=== PATIENT | female | born 1955 ===

== ENCOUNTER 2023-11-21 13:58 | Outpatient (AMB) | payer MEDICARE, OTHER, SELFPAY ==
[2023-11-21 14:32] VITALS: PULSE 78; TEMP 36.9; O2SAT 100; BMI 30.2
--- NOTE | 2023-11-21 14:32 | A.OFFVIS_ITS ---
Vital Signs 11/21/23 14:32 Height 5 ft 1 in Weight 160 lb BMI 30.2 Pulse 78 Pulse Source Pulse Oximeter Temp 98.4 F Temp Source Oral Pulse Oximetry (%) 100 Intake Visit Reasons: [email or web address] recurrent UTI Allergies ciprofloxacin [From Cipro] Allergy (Unknown, Verified 11/21/23 14:36) Unknown HPI HPI [email or web address] recurrent UTI: Details: She has had recurrent UTIs. She sees [facility]. SHe had unremarkable cystoscopy per her report. She reports allergy to Cipro with hives and puffiness. She reports being hospitalized twice in March and in October. [facility] Medical History (Updated 12/12/23 @ 15:50 by Amber Packer MD) Recurrent UTI Review of Systems Const All systems reviewed & are unremarkable except as noted in HPI and below Physical Exam Vital Signs: Last Vital Signs Temp 98.4 F 11/21/23 14:32 Pulse 78 11/21/23 14:32 Pulse Ox 100 11/21/23 14:32 BMI result Body Mass Index 30.2 Const General: cooperative Orientation/consciousness: patient oriented x3 HEENT Head: Yes normal to inspection Mouth: Normal oral and palatal mucosa present Eyes General: appearance normal, both eyes and all related structures Pupils: Equal, round and reactive pupils present Resp Effort & Inspection: normal respiratory effort Cardio Rate: regular rate Rhythm: regular rhythm GI Palpation (GI): Soft to palpation and nontender General: Yes no CVA tenderness Back/Spine/Pelvis Back: no CVA tenderness Skin General skin exam: no rashes or lesions noted Neuro General: patient oriented x3 Cranial nerves: Yes CN's II-XII intact bilaterally and Yes Equal, round and reactive pupils present Extrem General: Yes normal to inspection Psych Appearance: grossly normal Assessment & Plan Assessment & Plan (1) Recurrent UTI: Comment: Acidification of urine may help prevent bacterial growth. There is no antibiotic that would help prevent as resistance would grow. Code(s): N39.0 - Urinary tract infection, site not specified Category: Medical Plan: Methenamine 1 g po bid,60 and one refill. See as needed prn need. Medications: New methenamine hippurate 1 g PO BID 60 tabs 5RF 30 days Coding Level of Care Code New Pt Level 3 (58215) Diagnoses Recurrent UTI N39.0
== END 2023-11-21 14:45 | disposition home or self-care (01) ==
LOC: HO.HID 13:58
PROVIDERS: PCP Internal Medicine; Visit Provider Internal Medicine
DX: N39.0 Urinary tract infection, site not specified (principal)
CPT/HCPCS: 99203

== ENCOUNTER → 2023-11-21 13:58 | Outpatient (BNVA) | payer MEDICARE, OTHER, SELFPAY | PROVIDERS: PCP Internal Medicine; Visit Provider Internal Medicine | DX: N39.0 Urinary tract infection, site not specified (principal) | CPT/HCPCS: 99202 ==

== ENCOUNTER 2024-05-28 13:01 | Outpatient (AMB) | payer MEDICARE, OTHER, SELFPAY ==
--- NOTE | 2024-05-28 13:06 | A.OFFVIS_ITS ---
Vital Signs 05/28/24 13:07 Height 5 ft 1 in Weight 167 lb BMI 31.6 Pulse 90 Pulse Source Pulse Oximeter Temp 98.2 F Temp Source Oral Pulse Oximetry (%) 98 Intake Visit Reasons: 6 month UTI follow up Allergies ciprofloxacin [From Cipro] Allergy (Unknown, Verified 05/28/24 13:07) Unknown HPI Comments Details: She has not had any UTIs since taking methenamine. She has no issues with medication. She feels well. [facility] Medical History Recurrent UTI Review of Systems Const All systems reviewed & are unremarkable except as noted in HPI and below Physical Exam Vital Signs: Last Vital Signs Temp 98.2 F 05/28/24 13:07 Pulse 90 05/28/24 13:07 Pulse Ox 98 05/28/24 13:07 BMI result Body Mass Index 31.6 Const General: cooperative Orientation/consciousness: patient oriented x3 HEENT Head: Yes normal to inspection Mouth: Normal oral and palatal mucosa present Eyes General: appearance normal, both eyes and all related structures Pupils: Equal, round and reactive pupils present Resp Effort & Inspection: normal respiratory effort Cardio Rate: regular rate Rhythm: regular rhythm GI Palpation (GI): Soft to palpation and nontender General: Yes no CVA tenderness Back/Spine/Pelvis Back: no CVA tenderness Skin General skin exam: no rashes or lesions noted Neuro General: patient oriented x3 Cranial nerves: Yes CN's II-XII intact bilaterally and Yes Equal, round and reactive pupils present Extrem General: Yes normal to inspection Psych Appearance: grossly normal Assessment & Plan Assessment & Plan (1) Recurrent UTI: Comment: Acidification of urine may help prevent bacterial growth. There is no antibiotic that would help prevent as resistance would grow. Code(s): N39.0 - Urinary tract infection, site not specified Category: Medical Plan: Continue methenamine,theres no creatinine issues. Return in six months. Coding Level of Care Code Est Pt Level 3 (15519) Diagnoses Recurrent UTI N39.0
[2024-05-28 13:07] VITALS: PULSE 90; TEMP 36.8; O2SAT 98; BMI 31.6
--- OUTSIDE RECORDS SUMMARY | 2024-05-28 14:49 | XMS_ITS | Patient Health Record ---
Author Organization [facility] Address [address] [place] [address] Care Team Providers Care Case Hardener Name Role Phone Kassie Allen Unavailable [phone] Reason For Referral No Information Medications Medication SIG (Take, Route, Fr equency, Duration) Notes Start Date End Date Status Plaquenil 200MG 1 ORAL daily for -3 Chema-MJ 07/26/2012 Active Lidoderm 5% ARA AA Transdermal daily for -3 Chema-MJ 2012 Active Flonase 50MCG 2 Nasal daily for -3 Chema-MJ 07/26/2012 Active Problems Problem Type SNOMED Code ICD Code Onset Dates Problem Status W/U Status Risk Notes Problem Migraine (disorder) (35159571) Migraine, unspecified without mention of intractable migraine without mention of status migrainosus (346.90) Active confirmed Major Problem Ulcerative colitis (70246121) Unspecified ulcerative colitis (556.9) Active confirmed Major Problem Osteoarthritis (781386337) Osteoarthrosis, unspecified whether generalized or localized, unspecified site (715.90) Active confirmed Major Problem Gynecological examination normal (093524196205911) Routine gynecological examination (V72.31) Active confirmed Diag Plan Of Treatment No Information Insurance Providers Payer Name Payer Address Payer Phone Subscriber Number Group Number Insured Name Patient Relationship to Insured Coverage Start Date Coverage End Date [facility] [employer]AN [address] [place], [place] [phone] [phone] [id number] SANDRA BAUTISTA Self - patient is the insured
--- OUTSIDE RECORDS SUMMARY | 2024-05-28 14:49 | XMS_ITS | Clinical Summary ---
Author Organization [facility] Address [address] [place] [address] Care Team Providers Care Public Health Veterinarian Name Role Phone Oli Pearce MD Primary Care Provider [phone] Social History Tobacco Use Types Packs/Day Years Used Date Smoking Tobacco: Every Day Smokeless Tobacco: Never Comments Unknown Sex and Gender Information Value Date Recorded Sex Assigned at Not on file Legal Sex Female 9:08 PM EST Gender Identity Not on file Sexual Orientation Not on file Obstetrics History Last Filed Vital Signs Vital Sign Reading Time Taken Comments Blood Pressure 133/77 04/19/2023 9:37 AM EST Pulse 96 04/19/2023 9:37 AM EST Temperature - - Respiratory Rate - - Oxygen Saturation - - Inhaled Oxygen Concentration - - Weight 70.3 kg (155 lb 0.7 oz) 04/19/2023 9:37 A M EST Height 154.9 cm (5' 1 ) 04/19/2023 9:37 AM EST Body Mass Index 29.29 04/19/2023 9:37 AM EST Plan of Treatment Health Maintenance Due Date Last Done Comments DTaP,Tdap,and Td Vaccines (1 - Tdap) 1973 Pneumococcal Vaccine: 50+ Years (1 of 2 - PCV) 1973 Zoster Vaccines (1 of 2) 01/27/2004 Colorectal Cancer Screening: Colonoscopy 03/06/2022 Depression Screening 03/06/2022 Falls Risk Assessment 03/06/2022 Hepatitis C Screening 03/06/2022 Osteoporosis Screening (Bone Density Screening) 03/06/2022 Social Influencers of Health Screening 03/06/2022 COVID-19 Vaccine ( - season) 2023 Influenza Vaccine (#1) 2023 Breast Cancer Screening 09/19/2025 09/20/19 24, 08/12/2021, 11/11/2019, Additional history exists RSV Immunization Patients 60+ Years Old (1 - 1-dose 75+ series) 2029 HIB Vaccines Aged Out No longer eligi ble based on patient's age to complete this topic HPV Vaccines Aged Out No longer eligi ble based on patient's age to complete this topic Hepatitis A Vaccines Aged Out No long er eligible based on patient's age to complete this topic Hepatitis B Vaccines Aged Out No long er eligible based on patient's age to complete this topic IPV Vaccines Aged Out No longer eligi ble based on patient's age to complete this topic MMR Vaccines Aged Out No longer eligi ble based on patient's age to complete this topic Meningococcal ACWY Vaccine Aged Out N o longer eligible based on patient's age to complete this topic Meningococcal B Vacine Aged Out No lo nger eligible based on patient's age to complete this topic RSV Immunization Patients Under 20 months Aged Out No longer eligible based on patient's age to complete this topic Varicella Vaccines Aged Out No longer eligible based on patient's age to complete this topic Procedures Procedure Name Priority Date/Time Associated Diagnosis Comments [facility] SCREENING DIGITAL Routine 09/20/2023 1:22 PM EDT Encounter for screening mammogram for malignant neoplasm of breast from Last 3 Months or Most Recently Relevant to Health Maintenance Results * [facility] SCREENING [facility]IGITAL (09/20/2023 1:22 PM EDT) Anatomical Region Laterality Modality Mammography 09/20/2023 9:39 AM EDT Narrative 09/20/2023 1:22 PM EDT [facility] Diagnostic Imaging Department [address] [place], [place] [id number] Patient: ??ANIL BAUTISTA ?/Age/Sex: 1955 - 68 - F Unit#: ??[id number] ? Location/Status: ??SPDIMAM/REG CLI ? Mnemonic/Ordering Site: ??DIGSC/SPMAM Ordering Physician: ??OLI PEARCE MD [facility] Screening Digital - 09/20/23 - 956 Report Status:Signed EXAM: [facility] Screening Digital EXAM DATE AND TIME: 09/20/2023 9:57 AM HISTORY: ??Annual screening COMPARISON: ??08/12/2021 and 11/09/2019 TECHNIQUE: Bilateral digital breast tomosynthesis was performed in the CC and MLO projections. Computer aided detection with Finario 3D 3.1 was employed. TISSUE DENSITY: b. There are scattered areas of fibroglandular density. FINDINGS: No suspicious masses, grouped microcalcifications, or areas of architectural distortion are seen. The skin and vascularity are unremarkable. IMPRESSION: Stable mammographic appearance of the breasts. ??No evidence of malignancy is seen. A negative mammogram in the presence of a clinically suspicious palpable abnormality does not preclude the possibility of malignancy or alter the indications for biopsy. BI-RADS: ??Category 1: Negative RECOMMENDATION(S): 1: Routine screening mammogram BILATERAL in 1 year. Dictating Physician: ??DAPHNE MARTINEZ MD Electronically Signed by: ??DAPHNE MARTINEZ MD Dic Date/Time: ??09/20/23 1320 Sign date/Time: ??09/20/23 1322 Procedure Note Daphne Martinez MD - 01/18/2024 [facility] Diagnostic Imaging Department [address] [place] [address] Patient: ANIL BAUTISTA /Age/Sex: 1955 - 68 - F Unit#: [id number] Location/Status: SPDIMAM/REG CLI Mnemonic/Ordering Site: [facility] Ordering Physician: OLI PEARCE MD [facility] Screening Digital - 09/20/23 - 57 Report Status:Signed EXAM: [facility] Screening Digital EXAM DATE AND TIME: 09/20/2023 9:57 AM HISTORY: Annual screening COMPARISON: 08/12/2021 and 11/09/2019 TECHNIQUE: Bilateral digital breast tomosynthesis was performed in the CCand MLO projections. Computer aided detection with Finario 3D 3.1was employed. TISSUE DENSITY: b. There are scattered areas of fibroglandular density. FINDINGS: No suspicious masses, grouped microcalcifications, or areas ofarchitectural distortion are seen. The skin and vascularity are unremarkable. IMPRESSION: Stable mammographic appearance of the breasts. No evidence of malignancyis seen. A negative mammogram in the presence of a clinically suspicious palpable abnormality does not preclude the possibility of malignancy or alter the indications for biopsy. BI-RADS: Category 1: Negative RECOMMENDATION(S): 1: Routine screening mammogram BILATERAL in 1 year. Dictating Physician: DAPHNE MARTINEZ MD Electronically Signed by: DAPHNE MARTINEZ MD Dic Date/Time: 09/20/23 1320 Sign date/Time: 09/20/23 1322 Oli Pearce MD IMG BI PROCEDURES Final Result from Last 3 Months or Most Recently Relevant to Health Maintenance Care Teams Public Health Veterinarian Relationship Specialty Start Date End Date Oli Pearce MD [address] [place] [address] PCP - General 04/19/23
== END 2024-05-28 13:24 | disposition home or self-care (01) ==
LOC: HO.HID 13:01
PROVIDERS: PCP Internal Medicine; Visit Provider Internal Medicine
DX: N39.0 Urinary tract infection, site not specified (principal)
CPT/HCPCS: 99213

== ENCOUNTER → 2024-05-28 13:01 | Outpatient (BNVA) | payer MEDICARE, OTHER, SELFPAY | PROVIDERS: PCP Internal Medicine; Visit Provider Internal Medicine | DX: N39.0 Urinary tract infection, site not specified (principal) | CPT/HCPCS: 99212 ==

== ENCOUNTER 2024-10-29 13:05 | Outpatient (AMB) | payer MEDICARE, OTHER, SELFPAY ==
--- NOTE | 2024-10-29 13:04 | MHC.OFFVIS ---
Vital Signs 10/29/24 13:07 Height 5 ft 1 in Weight 159 lb BMI 30.0 Pulse 84 Pulse Source Pulse Oximeter Pulse Oximetry (%) 96 Oxygen Delivery Method Room Air Intake Visit Reasons: 6 month UTI follow up Allergies ciprofloxacin (From Cipro) Allergy (Unknown, Verified 10/29/24 13:08) Unknown HPI HPI 6 month UTI follow up: Details: She has had no UTIs. She feels well. [facility] Medical History Recurrent UTI Review of Systems Const All systems reviewed & are unremarkable except as noted in HPI and below Physical Exam Vital Signs: Last Vital Signs Pulse 84 10/29/24 13:07 Pulse Ox 96 10/29/24 13:07 Oxygen Delivery Method Room Air 10/29/24 13:07 BMI result Body Mass Index 30.0 Const General: cooperative Orientation/consciousness: patient oriented x3 HEENT Head: Yes normal to inspection Mouth: Normal oral and palatal mucosa present Eyes General: appearance normal, both eyes and all related structures Pupils: Equal, round and reactive pupils present Resp Effort & Inspection: normal respiratory effort Cardio Rate: regular rate Rhythm: regular rhythm GI Palpation (GI): Soft to palpation and nontender General: Yes no CVA tenderness Back/Spine/Pelvis Back: no CVA tenderness Skin General skin exam: no rashes or lesions noted Neuro General: patient oriented x3 Cranial nerves: Yes CN's II-XII intact bilaterally and Yes Equal, round and reactive pupils present Extrem General: Yes normal to inspection Psych Appearance: grossly normal Assessment & Plan Assessment & Plan (1) Recurrent UTI: Comment: She is doing great on methenamine 1 gram bid alone Code(s): N39.0 - Urinary tract infection, site not specified Category: Medical Plan: I did continue Methenamine and will see in one year or PCP can prescribe after that. Medications: Refilled methenamine hippurate 1 g PO BID 60 tabs 11RF 30 days Coding Level of Care Code Est Pt Level 3 (81766) Diagnoses Recurrent UTI N39.0
[2024-10-29 13:07] VITALS: PULSE 84; O2SAT 96
--- OUTSIDE RECORDS SUMMARY | 2024-10-29 13:45 | XMS_ITS | Patient Health Record ---
Author Organization [employer] [facility] Address [address] [place] [address] Care Team Providers Care Livestock Feeder Name Role Phone Kassie Allen Unavailable [phone] Reason For Referral No Information Medications Medication SIG (Take, Route, Fr equency, Duration) Notes Start Date End Date Status Plaquenil 200MG 1 ORAL daily; Duration: -3 Chema-MJ 013 Active Lidoderm 5% ARA AA Transdermal d aily; Duration: -3 Chema-MJ 07/26/2012 Active Flonase 50MCG 2 Nasal daily; Duration: -3 Chema-MJ 07/27/19 13 Active Problems Problem Type SNOMED Code ICD Code Onset Dates Problem Status W/U Status Risk Notes Problem Migraine (disorder) (94752502) Migraine, unspecified without mention of intractable migraine without mention of status migrainosus (346.90) Active confirmed Major Problem Ulcerative colitis (10063452) Unspecified ulcerative colitis (556.9) Active confirmed Major Problem Osteoarthritis (698482130) Osteoarthrosis, unspecified whether generalized or localized, unspecified site (715.90) Active confirmed Major Problem Gynecological examination normal (114237303816721) Routine gynecological examination (V72.31) Active confirmed Diag Plan Of Treatment No Information Insurance Providers Payer Name Payer Address Payer Phone Subscriber Number Group Number Insured Name Patient Relationship to Insured Coverage Start Date Coverage End Date [facility] STATE INDEMNITY PLAN [address] [place], [place] [id number] SANDRA BAUTISTA Self - patient is the insured
--- OUTSIDE RECORDS SUMMARY | 2024-10-29 13:45 | XMS_ITS | Clinical Summary ---
Author Organization [facility] Address [address] [place] [address] Phone Care Team Providers Care Field Adjuster Name Role Phone Jared Pearce MD Primary Care Provider [phone] Encounters Date Type Department Care Team Description 10/09/2024 8:41 AM EDT - 10/09/2024 11:59 PM EDT Hospital Encounter [facility] Xray [address] [place] [address] COPD with exacerbation (CMS/HCC V24, CMS/HCC V28) Discharge Disposition: Home or Self Care from Last 3 Months Social History Tobacco Use Types Packs/Day Years [...] Years (1 of 2 - PCV) 1973 RSV Immunization Adult Patients (1 - Risk 60-74 years 1-dose series) 2014 Zoster Vaccines (2 of 3) 12/02/2014 10/07/2014 Colorectal Cancer Screening: Colonoscopy 03/06/2022 Falls Risk Assessment 03/06/2022 Hepatitis C Screening 03/06/2022 Medicare Annual Wellness Visit 03/06/2022 Osteoporosis Screening (Bone Density Screening) 03/06/2022 Social Influencers of Health Screening 03/06/2022 COVID-19 Vaccine ( season) 2023 02/19/2022, 01/01/2021, 07/01/2020, Additional history exists Depression Screening 04/04/2024 Influenza Vaccine (#1) 2024 3, 12/21/2021, 01/01/2021, Additional history exists Breast Cancer Screening 09/19/2025 09/20/19 24, 08/12/2021, 11/11/2019, Additional history exists HIB Vaccines Aged Out No longer eligi [...] age to complete this topic Meningococcal B Vaccine Aged Out No l onger eligible based on patient's age to complete this topic RSV Immunization Patients Under 20 months Aged Out No longer eligible based on patient's age to complete this topic Varicella Vaccines Aged Out No longer eligible based on patient's age to complete this topic Procedures Procedure Name Priority Date/Time Associated Diagnosis Comments XR CHEST 2 VIEWS Routine 10/09/2024 8:54 AM EDT COPD with exacerbation (CMS/HCC V24, CMS/[facility] V28) [facility] SCREENING DIGITAL Routine 09/20/2023 1:22 PM EDT Encounter for screening mammogram for malignant neoplasm of breast from Last 3 Months or Most Recently Relevant to Health Maintenance Results * XR Chest 2 Views (10/09/2024 8:54 AM EDT) Anatomical Region Laterality Modality Body Radiographic Sarai ging 10/09/2024 8:58 AM EDT Impressions 10/09/2024 8:59 AM EDT No acute pulmonary disease. Scoliosis as above. Code 00509 -------- FINAL REPORT -------- Dictated By: Adán Nathan Dictated Date: 10/09/2024 08:58 ET Assigned Physician: Adán Nathan Reviewed and Electronically Signed By: Adán Nathan Signed Date: 10/09/2024 08:59 ET Workstation ID: [id number] Transcribed By: Self Edit Transcribed Date: 10/09/2024 08:58 ET Narrative 10/09/2024 8:59 AM EDT HISTORY: The patient is a 69-year-old female with persistent cough and dyspnea. FINDINGS: PA and lateral radiographs of the chest demonstrate dextroscoliosis of the thoracic spine as also seen on the prior study of 03/20/2023, as well as levoscoliosis of the included portion of the lumbar spine. The cardiac silhouette is within normal limits. The aortic knob is calcified. The lungs and costophrenic angles are clear. Procedure Note Adán Nathan MD - 10/09/2024 HISTORY: The patient is a 69-year-old female with persistent cough anddyspnea. FINDINGS: PA and lateral radiographs of the chest demonstratedextroscoliosis of the thoracic spine as also seen on the prior study of03/20/2023, as well as levoscoliosis of the included portion of the lumbarspine. The cardiac silhouette is within normal limits. The aortic knob iscalcified. The lungs and costophrenic angles are clear. IMPRESSION: No acute pulmonary disease. Scoliosis as above. Code 93054 -------- FINAL REPORT -------- Dictated By: Adán Nathan Dictated Date: 10/09/2024 08:58 ET Assigned Physician: Adán Nathan Reviewed and Electronically Signed By: Adán Nathan Signed Date: 10/09/2024 08:59 ET Workstation ID: [id number] Transcribed By: Self Edit Transcribed Date: 10/09/2024 08:58 ET Jared Pearce MD IMG XR PROCEDURES Final Result * [facility] SCREENING DIGITAL (09/20/2023 1:22 PM EDT) Anatomical Region Laterality Modality Mammography 09/20/2023 9:39 AM EDT Narrative 09/20/2023 1:22 PM EDT [facility] Diagnostic Imaging Department [address] [place] [address] Patient: LILYANIL D.O.B./Age/Sex: 1955 - 68 - F Unit#: [id number] Location/Status[facility] Mnemonic/Ordering Site: [facility] Ordering Physician: JARED PEARCE MD [facility] Screening Digital - 09/20/23 - 0957 Report Status:Signed EXAM: [facility] Screening Digital EXAM DATE AND TIME: 09/20/2023 9:57 AM HISTORY: Annual screening COMPARISON: 08/12/2021 and 11/09/2019 TECHNIQUE: Bilateral digital breast tomosynthesis was performed in the CC and MLO projections. Computer aided detection with Revinate 3D 3.1 was employed. TISSUE DENSITY: b. There are scattered areas of fibroglandular density. FINDINGS: No suspicious masses, grouped microcalcifications, or areas of architectural distortion are seen. The skin and vascularity are unremarkable. IMPRESSION: Stable mammographic appearance of the breasts. No evidence of malignancy is seen. A negative mammogram in the presence of a clinically suspicious palpable abnormality does not preclude the possibility of malignancy or alter the indications for biopsy. BI-RADS: Category 1: Negative RECOMMENDATION(S): 1: Routine screening mammogram BILATERAL in 1 year. Dictating Physician: DAPHNE MARTINEZ MD Electronically Signed by: DAPHNE MARTINEZ MD Dic Date/Time: 09/20/23 1320 Sign date/Time: 09/20/23 1322 Procedure Note Daphne Martinez MD - 01/18/2024 [facility] Diagnostic Imaging Department [address] [place] [address] Patient: ANIL BAUTISTA /Age/Sex: 1955 - 68 - F Unit#: [id number] Location/Status: [facility] Mnemonic/Ordering Site: [facility] Ordering Physician: JARED PEARCE MD [facility] Screening Digital - 09/20/23 - 0957 Report Status:Signed EXAM: [facility] Screening Digital EXAM DATE AND TIME: 09/20/2023 9:57 AM HISTORY: Annual screening COMPARISON: 08/12/2021 and 11/09/2019 TECHNIQUE: Bilateral digital breast tomosynthesis was performed in the CCand MLO projections. Computer aided detection with Revinate 3D 3.1was employed. TISSUE DENSITY: b. There [...] Date/Time: 09/20/23 1320 Sign date/Time: 09/20/23 1322 Jared Pearce MD IMG BI PROCEDURES Final Result from Last 3 Months or Most Recently Relevant to Health Maintenance Insurance MEDICARE [facility] Care Teams Field Adjuster Relationship Specialty Start Date End Date Jared Pearce MD [address] [place] [id number] [facility] - General 04/19/23
== END 2024-10-29 13:55 | disposition home or self-care (01) ==
LOC: HO.HID 13:05
PROVIDERS: PCP Internal Medicine; Visit Provider Internal Medicine
DX: N39.0 Urinary tract infection, site not specified (principal)
CPT/HCPCS: 99213

== ENCOUNTER → 2024-10-29 13:05 | Outpatient (BNVA) | payer MEDICARE, OTHER, SELFPAY | PROVIDERS: PCP Internal Medicine; Visit Provider Internal Medicine | DX: N39.0 Urinary tract infection, site not specified (principal); Z79.899 Other long term (current) drug therapy | CPT/HCPCS: 99212 ==